=== PATIENT | male | born 1985 | race African-American/Black ===

== ENCOUNTER 2023-06-02 08:51 | Emergency (ER) | payer OTHER ==
[~2023-06-02] VITALS: Ht 172.7 cm; Wt 108.2 kg
[2023-06-02 08:51] VITALS: BP 151/84; TEMP 97.8; O2SAT 97
[2023-06-02 10:18] LABS: BASO % 0.4 % (0.0-1.0); EOS # 0.1 10^3/uL (0.0-0.5); HEMATOCRIT 59.6 % (42.0-52.0); HEMOGLOBIN 19.6 g/dl (13.5-17.5); LYMPH # 1.3 10^3/uL (1.5-5.0); LYMPH % 15.9 % (24.0-44.0); MEAN CORPUSCULAR HEMOGLOBIN 31.9 pg (27.0-33.0); MEAN CORPUSCULAR HGB CONC 32.9 g/dl (32.0-36.5); MEAN CORPUSCULAR VOLUME 97.1 fl (80.0-96.0); MONO # 0.9 10^3/uL (0.0-0.8); MONO % 10.3 % (2.0-8.0); NEUTROPHILS # 5.9 10^3/uL (1.5-8.5); PLATELET COUNT, AUTOMATED 188 10^3/uL (150-450); RED BLOOD COUNT 6.14 10^6/uL (4.30-6.10); WHITE BLOOD COUNT 8.2 10^3/uL (4.0-10.0)
[2023-06-02 10:47] LABS: BLOOD UREA NITROGEN 13 MG/DL (9-23); CALCIUM LEVEL 9.2 MG/DL (8.5-10.1); CARBON DIOXIDE LEVEL 29 MMOL/L (20-31); CHLORIDE LEVEL 102 MMOL/L (98-107); CREATININE FOR GFR 0.88 MG/DL (0.70-1.30); GLOMERULAR FILTRATION RATE > 60.0 (>60); GLUCOSE, FASTING 99 MG/DL (60-100); POTASSIUM SERUM 4.3 MMOL/L (3.5-5.1); SODIUM LEVEL 138 MMOL/L (136-145)
[2023-06-02 10:48] LABS: URIC ACID 9.5 MG/DL (3.7-9.2)
[2023-06-02] MEDS ORDERED: NS 1,000 ML IV ONE (11:15)
[2023-06-02] MEDS ORDERED: KETOROLAC 30 MG/ML 1ML VIAL IV ONE (11:15)
[2023-06-02] MEDS ORDERED: LIDOCAINE 4% CREAM 5GM (LMX4) TOP ONE (11:15)
[2023-06-02 11:56] LABS: ERYTHROCYTE SEDIMENTATION RATE 18 mm/hr (0-15)
[2023-06-02 12:34] LABS: CPK CREATINE PHOSPHOKINASE 365 U/L (46-171)
[2023-06-02] MEDS ORDERED: COLCHICINE 0.6 MG TABLET PO ONE ×3 (13:05→14:30)
[2023-06-02] MEDS ORDERED: NAPR-837 PO (13:15)
[2023-06-02] MEDS ORDERED: HYDR-3713 PO (13:15)
== END 2023-06-02 13:42 | disposition home or self-care (01) ==
LOC: M ED 08:51
DX: M10.9 Gout, unspecified (principal); F17.200 Nicotine dependence, unspecified, uncomplicated
CPT/HCPCS: 73630; 80048; 82550; 84550; 85025; 85652; 86140; 96374; 99284; J1885